=== PATIENT | male | born 1965 | race Caucasian/White ===

== ENCOUNTER 2016-11-10 01:31 | Inpatient (IN) | payer OTHER ==
[~2016-11-10] VITALS: Ht 177.8 cm; Wt 91.4 kg
--- NOTE | ~2016-11-10 | H ---
[facility] [place] [address] HISTORY AND PHYSICAL Name: KATERINABLOSSOM Beata Room #: 441-P ADM IN M.R.#: [id number] Admission: 11/10/16 Attend Phys: Lori Retana Discharge: Date of : 69 Report #: [id number] THIS REPORT FOR: //name// CC: [facility] physician/PCP Trino Guillen ATTENDING PHYSICIAN: Trino Guillen MD PRIMARY CARE PHYSICIAN: At the [facility] in [place], Ghazal Mejia DO CHIEF COMPLAINT: Abdominal pain. HISTORY OF PRESENT ILLNESS: The patient is a 51-year-old male who was sent as a direct admission from [place] for abdominal pain and colitis. He presented to the ER last night complaining of generalized epigastric abdominal pain. The pain does not radiate. The pain started yesterday and remained constant throughout most of the day. He was nauseous and did not eat anything throughout the day, but he did drink water and tea as well as beer. He did have some diarrhea, at least 4-5 episodes of watery brown stool. He denies seeing any blood in his stool. Eventually, he started having some dry heaves and came in to the ER. On arrival, his blood pressure was 88/60 and he did receive a total of 3 liters of IV fluids there prior to transfer. He also was reporting some left-sided rib pain. He reported falling off of a 4-phelps on and has had some pain since. The pain is worse with taking deep breaths or palpation. He denies any history of coronary artery disease. He denies any recent ill contacts with any GI illness. Denies any recent antibiotic use. Denies any fevers or chills. He has had history of inflammatory bowel disease and he thinks he last had a colonoscopy at least 2 years ago. He is not really sure what that showed. He has not been on any treatment for ulcerative colitis. The patient is very vague about this prior diagnosis and really cannot tell me any details. He also has had problems with chronic pancreatitis. He says this abdominal pain feels different than when he previously had pancreatitis. He has never been admitted at this facility. He currently rates his pain 04/15 and is requesting some pain medication. PAST MEDICAL HISTORY: Diabetes type 2, not currently on insulin, GERD, depression, hypertension, hyperlipidemia, chronic pancreatitis, peripheral neuropathy, inflammatory bowel disease. PAST SURGICAL HISTORY: Appendectomy, cholecystectomy, right shoulder repair. ALLERGIES: FENTANYL AND MORPHINE. HOME MEDICATIONS: They are currently being entered, but he is on lisinopril, statin, omeprazole among others. SOCIAL HISTORY: The patient lives alone. He is retired [place] [address] HISTORY AND PHYSICAL Name: BLOSSOM BORGES Room #: 441-P [facility] IN ..#: [id number] Admission: 11/10/16 Attend Phys: Lori Retana Discharge: Date of : 69 Report #: [id number] [place], [place]. He does admit to drinking alcohol on a weekly basis. This is usually during watching football game. He says at times during football games, he will drink 12-pack, but he denies any daily use. He last drank a 6-pack of beer yesterday. He does smoke. He smokes half pack per day. He has been smoking for about 30 years. He also chews tobacco, denies any drug use. FAMILY HISTORY: His mother is alive and healthy and a cancer survivor. His father , but he does not know why. REVIEW OF SYSTEMS: Twelve point review of systems was reviewed with the patient, otherwise negative unless stated in the HPI. PHYSICAL EXAMINATION: GENERAL: The patient is an alert male in no acute distress. VITAL SIGNS: Temperature is 36.8, heart rate 119, respirations 20, blood pressure is 95/67, oxygen is 98% on room air. HEENT: PERRLA. Sclerae is nonicteric. Oral mucosa is pink and moist. NECK: Supple, no JVD noted. CARDIOVASCULAR: Normal S1, S2, but tachycardic. No murmurs, rubs or gallops. RESPIRATORY: Breath sounds are clear bilaterally. No wheezing or rhonchi. Breathing is nonlabored. He does have some left lateral rib tenderness to palpation. ABDOMEN: Soft and nondistended. He does have significant epigastric and mid abdominal pain. Bowel sounds are rare. VASCULAR: No edema noted. Pedal pulses are 2+. NEUROLOGIC: The patient is alert and oriented times 3. Speech is clear. He is moving all extremities equally. No focal deficits noted. PSYCHIATRIC: The patient is calm and cooperative. No signs of DTs. SKIN: He does have small abrasion to his left bassett. No surrounding erythema. LABORATORY DATA AND DIAGNOSTICS: WBC is 7.0, hemoglobin 12.4, platelets 383. Sodium 144, potassium 4.0, BUN 10, creatinine 1.0, glucose 69, anion gap 27. Alcohol level 313. INR 1.2. Lactate 4.6. CT of the head is negative. Lipase is 238. LFTs are within normal limits. CK is 279. Troponin was 0.07. CT of the abdomen showed moderate hiatal hernia, mild descending sigmoid colon, mild wall thickening, may be mild colitis, and atrophic left kidney, dilatation of the pancreatic duct of 11 mm, which was similar to prior, pancreatic atrophy with calcification and diverticulosis, but no diverticulitis. ASSESSMENT AND PLAN: 1. Abdominal pain. CT does show possible mild colitis. This could be infectious as he has been having some diarrhea. We will check stool culture and C. diff. He also mentions history of inflammatory bowel disease, so this may be the changes we are seeing on the CT. We will consult GI for further evaluation. His LFTs are within normal limits. He has a history of a prior cholecystectomy. He does have chronic pancreatitis, but his lipase level is [facility] [address] [place] [address] HISTORY AND PHYSICAL Name: KATERINABLOSSOM D Room #: 441-P [facility] IN M.R.#: [id number] Admission: 11/10/16 Attend Phys: Lori Retana Discharge: Date of : 69 Report #: [id number] normal, although it is concerning there is pancreatic ductal dilatation, which may need to be further evaluated. Continue with pain control, allow clear liquids. Continue antiemetics, start Cipro and Flagyl for colitis. This may also be due to gastritis, possibly related to alcohol versus an ulcer, although there are no signs of bleeding. We will add PPI b.i.d. 2. Hypotension. The patient does have a history of hypertension, we will hold his home blood pressure medications and continue with hydration. This may be due to poor p.o. intake yesterday. 3. Diabetes. He is diet controlled. Blood sugars are stable. We will hold home oral hypoglycemics ____ decreased oral intake and add sliding scale insulin. Check blood sugars a.c. and at bedtime. 4. Lactic acidosis. Etiology is not clear, may be metabolic due to alcohol use. We will repeat a lactate at this time. 5. Alcohol intoxication. The patient is currently alert and oriented, and not showing any signs of withdrawal, although his alcohol level is 313. He denies any daily use, but we will monitor for any signs of withdrawal. 6. Left-sided rib pain status post traumatic injury. X-rays did not show any rib fractures. He likely has deep bruise. Continue with pain control. 7. Deep venous thrombosis prophylaxis, place sequential compression devices. We will continue to follow patient closely throughout the hospitalization and make changes based on clinical status. <ELECTRONICALLY SIGNED> By: CAROLYN Kirkland 11/11/16 [id number] CAROLYN Kirkland /nt
--- NOTE | ~2016-11-10 | EKG ---
[address] [address] ELECTROCARDIOGRAM REPORT Name: BLOSSOM BORGES Room #: 441- ADM IN M.R.#: [id number] Admission: 11/10/16 Attend Phys: Trino Guillen MD Discharge: Date of : 69 Report #: [id number] THIS REPORT FOR: //name// [facility] Test Date: 2016-11-10 Test Time: 07:31:01 Pat Name: BLOSSOM BORGES Department: Room: [facility] Gender: M Pediatric Clinical Dietician: cat : 1965 Requested By: Swetha Peña Order Number: [id number] MD: Cholo Henry Measurements Intervals [place] Rate: 93 P: 19 GA: 148 QRS: 60 QRSD: 92 T: 48 QT: 367 QTc: 457 Interpretive Statements Sinus rhythm No significant abnormality No previous ECG available for comparison Electronically Signed On 11-10-2016 8:37:10 DIRECTOR OF CLINICAL APPLICATIONS by Cholo Henry [email or web address] <ELECTRONICALLY SIGNED> By: Cholo Henry MD, [facility] 11/10/16 0837 0731 0731 Cholo Henry MD, FACC /EPI
[2016-11-10 03:40] VITALS: BP 95/67
[2016-11-10] MEDS ORDERED: METFORMIN HCL500 MG PO (05:17)
[2016-11-10] MEDS ORDERED: PRINIVIL20 M1 PO (05:18)
[2016-11-10] MEDS ORDERED: GLUCOTROL5 MG PO (05:19)
[2016-11-10] MEDS ORDERED: GABAPENTIN 100100 MG PO (05:20)
[2016-11-10] MEDS ORDERED: LIPITOR10 MG PO (05:20)
[2016-11-10] MEDS ORDERED: AMITRIPTYLINE H25 M2 PO (05:21)
[2016-11-10] MEDS ORDERED: OMEPRAZOLE20 M2 PO (05:22)
[2016-11-10] MEDS ORDERED: PROZAC20 MG PO (05:23)
[2016-11-10] MEDS ORDERED: GLUCOTROL XL5 MG PO (05:24)
[2016-11-10 06:26] LABS: CALCIUM 7.6 mg/dL (8.5-10.1); CREATININE 0.9 mg/dL (0.6-1.3); MAGNESIUM 1.4 mg/dL (1.8-2.4); POTASSIUM 4.1 mmol/L (3.5-5.1); TROPONIN-I 0.11 ng/mL (<0.04-0.07)
[2016-11-10 07:13] VITALS: BP 85/49
[2016-11-10 08:21] VITALS: BP 93/55
[2016-11-10 11:22] VITALS: BP 128/77
[2016-11-10 17:01] VITALS: BP 119/83
[2016-11-10 20:05] VITALS: BP 124/74
[2016-11-11] VITALS (7 sets, daily range): BP systolic 101–132; BP diastolic 64–92
[2016-11-11 00:06] LABS: GLYCOHEMOGLOBIN (HGB A1C) 5.8 % (4.8-5.6)
[2016-11-11 05:04] LABS: ALBUMIN 3.2 g/dL (3.4-5.0); CALCIUM 7.7 mg/dL (8.5-10.1); CREATININE 0.9 mg/dL (0.6-1.3); POTASSIUM 4.4 mmol/L (3.5-5.1); TOTAL BILIRUBIN 0.5 mg/dL (<0.1-1.0); TOTAL PROTEIN 6.2 g/dL (6.4-8.2)
[2016-11-12 04:02] VITALS: BP 98/70
[2016-11-12 06:14] LABS: HEMATOCRIT 28.8 % (42.0-52.0); HEMOGLOBIN 9.7 gm/dL (14.0-18.0); MCHC 33.7 % (28.0-37.0); MCV 101.1 fL (80.0-100.0); RBC 2.85 mil/uL (4.50-6.00); RDW 16.3 % (10.5-14.5); WBC 3.7 thou/uL (4.0-11.0)
[2016-11-12 08:00] VITALS: BP 113/82
[2016-11-12 16:00] VITALS: BP 122/88
[2016-11-12 21:44] VITALS: BP 121/83
[2016-11-13 03:40] VITALS: BP 126/79
[2016-11-13 08:00] VITALS: BP 130/83
[2016-11-13 12:00] VITALS: BP 149/87
[2016-11-13] MEDS ORDERED: CIPRO500 MG PO (12:08)
[2016-11-13] MEDS ORDERED: OXYCODONE HCL 55 MG PO (12:08)
[2016-11-13] MEDS ORDERED: FLAGYL500 MG PO (12:08)
[2016-11-13 15:06] VITALS: BP 149/87
== END 2016-11-13 15:49 | disposition home or self-care (01) | DRG 897 ==
LOC: 4S 01:31
PROVIDERS: Hospitalist; Internal Medicine Gastroenterology; Nurse Practitioner Acute Care
DX: F10.129 Alcohol abuse with intoxication, unspecified (principal); K86.1 Other chronic pancreatitis; E87.2 Acidosis; K52.9 Noninfective gastroenteritis and colitis, unspecified; K21.9 Gastro-esophageal reflux disease without esophagitis; F32.9 Major depressive disorder, single episode, unspecified; I10 Essential (primary) hypertension; E78.5 Hyperlipidemia, unspecified; E11.42 Type 2 diabetes mellitus with diabetic polyneuropathy; Z96.611 Presence of right artificial shoulder joint; Z60.2 Problems related to living alone; I95.9 Hypotension, unspecified; Z98.890 Other specified postprocedural states; Z90.49 Acquired absence of other specified parts of digestive tract; Z88.6 Allergy status to analgesic agent
CPT/HCPCS: 10100